=== PATIENT | male | born 1995 | race Caucasian/White ===

== ENCOUNTER 2016-11-28 04:58 | Emergency (ER) | payer OTHER ==
[~2016-11-28] VITALS: Ht 182.9 cm; Wt 93.2 kg
[~2016-11-28 04:58] MED LIST: CEPHALEXIN500 M1 PO; NORCO 325 MG-51 TAB PO
[2016-11-28 05:00] VITALS: TEMP 97.8
[2016-11-28] MEDS ORDERED: PHENERGAN 25 TA25 MG PO (05:40)
[2016-11-28 07:08] VITALS: BP 122/73; PULSE 64
== END 2016-11-28 07:09 | disposition home or self-care (01) ==
LOC: COL.ER 04:58
DX: K52.9 Noninfective gastroenteritis and colitis, unspecified (principal)
CPT/HCPCS: J2405; J2550; J7030